=== PATIENT | female | born 1980 | race American Indian/Alaskan Native ===

== ENCOUNTER → 2019-06-28 | Outpatient (CLI) | payer OTHER ==
[~2019-06-28] MED LIST: ACETAMINOPHEN500 M1 PO; DOCUSATE SODIU100 MG PO; PRENATE ADVANCE PO
== END | disposition home or self-care (01) ==
LOC: PRENATAL 08:30
DX: O35.3XX0 Maternal care for (suspected) damage to fetus from viral disease in mother, not applicable or unspecified (principal); O09.522 Supervision of elderly multigravida, second trimester

== ENCOUNTER 2019-11-17 05:57 | Inpatient (IN) | payer OTHER ==
[~2019-11-17] VITALS: Ht 162.6 cm; Wt 79.8 kg
[2019-11-17] MEDS ORDERED: VALTREX1000 MG PO (06:53)
[2019-11-17] MEDS ORDERED: ZITHROMAX1 GM PO (06:53)
[2019-11-17] MEDS ORDERED: BUDEO.25 IH (06:53)
[2019-11-17] MEDS ORDERED: PROAIR HFA8.5 GM IH (06:54)
== END 2019-11-19 14:56 | disposition home or self-care (01) | DRG 768 ==
LOC: OB/GYN 05:57 → LDR 05:57 → OB/GYN 15:59
PROVIDERS: ADMIT Obstetrics & Gynecology
PROC: 0DQR0ZZ Repair Anal Sphincter, Open Approach (ICD-10-PCS; principal; 2019-11-17)
PROC: 10E0XZZ Delivery of Products of Conception, External Approach (ICD-10-PCS; 2019-11-17)
PROC: 4A1HXFZ Monitoring of Products of Conception, Cardiac Rhythm, External Approach (ICD-10-PCS; 2019-11-17)
PROC: 0W8NXZZ Division of Female Perineum, External Approach (ICD-10-PCS; 2019-11-17)
DX: O99.824 Streptococcus B carrier state complicating childbirth (principal); Z37.0 Single live birth; Z3A.39 39 weeks gestation of pregnancy; O70.20 Third degree perineal laceration during delivery, unspecified